=== PATIENT | female | born 2000 | race Two or more races ===

== ENCOUNTER 2020-07-20 11:27 | Emergency (ER) | payer OTHER ==
[~2020-07-20] VITALS: Ht 152.4 cm; Wt 59.4 kg
[2020-07-20] MEDS ORDERED: PRENATABS FA T1 EACH PO (11:37)
== END 2020-07-20 17:20 | disposition home or self-care (01) ==
LOC: ER 11:27
DX: O43.891 Other placental disorders, first trimester (principal); O26.851 Spotting complicating pregnancy, first trimester; O36.80X1 Pregnancy with inconclusive fetal viability, fetus 1; Z3A.01 Less than 8 weeks gestation of pregnancy

== ENCOUNTER → 2020-10-24 | Outpatient (CLI) | payer OTHER ==
[~2020-10-24] MED LIST: PRENATABS FA T1 EACH PO
== END | disposition home or self-care (01) ==
LOC: PRENATAL 13:00
PROVIDERS: ATTEND Obstetrics & Gynecology Maternal & Fetal Medicine
DX: O35.0XX1 Maternal care for (suspected) central nervous system malformation in fetus, fetus 1 (principal); O35.3XX1 Maternal care for (suspected) damage to fetus from viral disease in mother, fetus 1; O98.512 Other viral diseases complicating pregnancy, second trimester; Z36.89 Encounter for other specified antenatal screening; Z3A.20 20 weeks gestation of pregnancy

== ENCOUNTER 2021-01-08 15:05 | Inpatient (IN) | payer OTHER ==
[~2021-01-08] VITALS: Ht 154.9 cm; Wt 77.1 kg
== END 2021-01-25 19:07 | disposition home or self-care (01) | DRG 832 ==
LOC: LDR 15:05 → OB/GYN 01-11 13:19
PROVIDERS: ADMIT Obstetrics & Gynecology; ATTEND Obstetrics & Gynecology
PROC: 4A1HXFZ Monitoring of Products of Conception, Cardiac Rhythm, External Approach (ICD-10-PCS; principal; 2021-01-08)
DX: O60.03 Preterm labor without delivery, third trimester (principal); O26.873 Cervical shortening, third trimester; A49.3 Mycoplasma infection, unspecified site; Z3A.32 32 weeks gestation of pregnancy

== ENCOUNTER 2021-02-13 19:51 | Outpatient (CLI) | payer OTHER | END 2021-02-14 15:30 | disposition home or self-care (01) | LOC: OBS/DEL 19:51 | PROVIDERS: ATTEND Obstetrics & Gynecology | DX: O47.1 False labor at or after 37 completed weeks of gestation (principal); Z3A.37 37 weeks gestation of pregnancy; Z20.822 Contact with and (suspected) exposure to COVID-19 ==

== ENCOUNTER 2021-02-25 08:01 | Outpatient (CLI) | payer OTHER | END 2021-02-25 17:11 | disposition home or self-care (01) | LOC: OBS/DEL 08:01 | PROVIDERS: ATTEND Obstetrics & Gynecology | DX: O26.843 Uterine size-date discrepancy, third trimester (principal); Z3A.39 39 weeks gestation of pregnancy ==

== ENCOUNTER 2021-02-28 12:01 | Inpatient (IN) | payer OTHER ==
[~2021-02-28] VITALS: Ht 154.9 cm; Wt 82.6 kg
== END 2021-03-03 14:14 | disposition home or self-care (01) | DRG 807 ==
LOC: LDR 12:01 → OB/GYN 03-01 18:21
PROVIDERS: ADMIT Obstetrics & Gynecology; ATTEND Obstetrics & Gynecology
PROC: 10E0XZZ Delivery of Products of Conception, External Approach (ICD-10-PCS; principal; 2021-03-01)
PROC: 0HQ9XZZ Repair Perineum Skin, External Approach (ICD-10-PCS; 2021-03-01)
PROC: 4A1HXFZ Monitoring of Products of Conception, Cardiac Rhythm, External Approach (ICD-10-PCS; 2021-03-01)
PROC: 10907ZC Drainage of Amniotic Fluid, Therapeutic from Products of Conception, Via Natural or Artificial Opening (ICD-10-PCS; 2021-03-01)
PROC: 3E033VJ Introduction of Other Hormone into Peripheral Vein, Percutaneous Approach (ICD-10-PCS; 2021-03-01)
DX: O98.12 Syphilis complicating childbirth (principal); Z37.0 Single live birth; O70.0 First degree perineal laceration during delivery; Z3A.39 39 weeks gestation of pregnancy; A53.9 Syphilis, unspecified

== ENCOUNTER → 2024-03-07 | Emergency (ER) | payer OTHER ==
[~2024-03-07] VITALS: Ht 154.9 cm; Wt 76.7 kg
[~2024-03-07] MED LIST changes: +FAMOTIDINE/PF 20 MG in 0.9 % SODIUM CHLORIDE 8 ML IV PUSH STA; +MEPERIDINE HCL/PF 25 MG/ML VIAL IM ONE; +ONDANSETRON HCL 2 MG/ML VIAL IV ONE; +RINGERS SOLUTION,LACTATED 1,000 ML IV SCH
== END | disposition left against medical advice (07) ==
LOC: ER 17:51
DX: O26.891 Other specified pregnancy related conditions, first trimester (principal); K80.50 Calculus of bile duct without cholangitis or cholecystitis without obstruction; Z3A.01 Less than 8 weeks gestation of pregnancy

== ENCOUNTER 2024-04-27 12:46 | Emergency (ER) | payer OTHER ==
[~2024-04-27] VITALS: Ht 154.9 cm; Wt 79.4 kg
[~2024-04-27 12:46] MED LIST changes: -FAMOTIDINE/PF 20 MG in 0.9 % SODIUM CHLORIDE 8 ML IV PUSH STA; -MEPERIDINE HCL/PF 25 MG/ML VIAL IM ONE; -ONDANSETRON HCL 2 MG/ML VIAL IV ONE; -RINGERS SOLUTION,LACTATED 1,000 ML IV SCH
[2024-04-27 13:20] VITALS: BP 103/70; O2SAT 98
[2024-04-27 14:42] LABS: PH,URINE 6.5 (5.0-8.0); URINE APPEARANCE Clear; URINE BILIRRUBIN Negative (NEGATIVE); URINE BLOOD Negative; URINE COLOR Yellow; URINE GLUCOSE Negative (NEGATIVE); URINE KETONE Negative (NEGATIVE); URINE LEUKOCYTE Large; URINE NITRATE Negative; URINE PROTEIN Negative (NEGATIVE); URINE UROBILINOGEN 0.2 E.U./dl
[2024-04-27 14:43] LABS: HEMOGLOBIN 13.1 g/dL (12.0-15.00); MEAN CELL VOLUME 90.3 fL (80.00-100.00); MEAN CORPUSCULAR HEMOGLOBIN 30.3 pg (27.00-32.0); MEAN CORPUSCULAR HGB CONC 33.6 g/dl (32.0-36.0); PLATELET COUNT 193 K/uL (150-450); RED BLOOD COUNT 4.32 M/uL (4.00-6.00); RED CELL DISTRIBUTION WIDTH 13.5 % (11.5-14.5)
[2024-04-27 14:47] LABS: URINE EPITHELIAL CELLS 41.7 uL (0.0-38.8); URINE WBC 124.4 uL (0.0-23.2)
[2024-04-27 14:53] LABS: URINE CAST 1.06 uL (0.0-1.40); URINE RBC 0.6 uL (0.0-20.8)
[2024-04-27 15:16] LABS: CALCIUM 9.5 mg/dL (8.5-10.1); CREATININE SERUM 0.66 mg/dL (0.55-1.02); GFR 109.12; POTASSIUM 4.08 mEq/L (3.5-5.1)
== END 2024-04-27 15:46 | disposition home or self-care (01) ==
LOC: ER 12:48
PROVIDERS: General Practice
DX: O26.891 Other specified pregnancy related conditions, first trimester (principal); S39.81XA Other specified injuries of abdomen, initial encounter; W50.0XXA Accidental hit or strike by another person, initial encounter; Y93.89 Activity, other specified; Y92.89 Other specified places as the place of occurrence of the external cause; Z3A.15 15 weeks gestation of pregnancy

== ENCOUNTER 2024-05-05 08:30 | Outpatient (CLI) | payer OTHER | END 2024-05-05 08:31 | disposition home or self-care (01) | LOC: PRENATAL 08:30 | PROVIDERS: ATTEND Obstetrics & Gynecology Maternal & Fetal Medicine | DX: Z76.1 Encounter for health supervision and care of foundling (principal) ==

== ENCOUNTER 2024-06-24 09:15 | Outpatient (CLI) | payer OTHER | END 2024-06-24 09:16 | disposition home or self-care (01) | LOC: PRENATAL 09:15 | PROVIDERS: ATTEND Obstetrics & Gynecology Maternal & Fetal Medicine | DX: O44.00 Complete placenta previa NOS or without hemorrhage, unspecified trimester (principal); O28.3 Abnormal ultrasonic finding on antenatal screening of mother; Z3A.20 20 weeks gestation of pregnancy ==

== ENCOUNTER → 2024-07-15 | Emergency (ER) | payer OTHER ==
[~2024-07-15] VITALS: Ht 154.9 cm; Wt 83.5 kg
== END | disposition left against medical advice (07) ==
LOC: ER 08:31
DX: R53.81 Other malaise (principal)

== ENCOUNTER 2024-08-18 12:50 | Outpatient (CLI) | payer OTHER | END 2024-08-18 12:51 | disposition home or self-care (01) | LOC: PRENATAL 12:50 | PROVIDERS: ATTEND Obstetrics & Gynecology Maternal & Fetal Medicine | DX: O26.849 Uterine size-date discrepancy, unspecified trimester (principal); O28.3 Abnormal ultrasonic finding on antenatal screening of mother; Z3A.28 28 weeks gestation of pregnancy ==

== ENCOUNTER → 2024-09-30 10:31 | Outpatient (CLI) | payer OTHER | END | disposition home or self-care (01) | LOC: PRENATAL 10:31 | PROVIDERS: ATTEND Obstetrics & Gynecology Maternal & Fetal Medicine | DX: O26.849 Uterine size-date discrepancy, unspecified trimester (principal); O36.8199 Decreased fetal movements, unspecified trimester, other fetus; O28.3 Abnormal ultrasonic finding on antenatal screening of mother; Z3A.33 33 weeks gestation of pregnancy ==

== ENCOUNTER 2024-10-12 14:43 | Outpatient (CLI) | payer OTHER ==
[2024-10-12 11:35] VITALS: BP 109/66
[2024-10-12 13:53] VITALS: BP 109/66
[2024-10-12] MEDS ORDERED: PRENATAL TABLE1 EAC4 (14:47)
[2024-10-12] MEDS ORDERED: TERBUTALINE SULFATE 1 MG/ML AMPUL SUBCUTANEO SCH (15:00)
[2024-10-12] MEDS ORDERED: RINGERS SOLUTION,LACTATED 1,000 ML IV SCH (15:00)
[2024-10-12 15:44] LABS: BASO % 0.2 % (0.1-1.2); EOS # 0.13 (0.04-0.54); EOS % 1.6 % (0.7-7.0); HEMATOCRIT 34.3 % (34.1-44.9); HEMOGLOBIN 11.6 g/dL (11.2-15.7); LYMPH # 1.69 (1.18-3.74); LYMPH % 20.3 % (19.3-53.1); MEAN CORPUSCULAR HEMOGLOBIN 29.1 pg (25.6-32.2); MONO # 0.69 (0.24-0.82); MONO % 8.3 % (4.7-12.5); NEUT # 5.76 (1.56-6.13); PLATELET COUNT 208 K/uL (163-369); RED BLOOD COUNT 3.99 M/uL (3.93-5.22); RED CELL DISTRIBUTION WIDTH 13.7 % (11.6-14.4)
[2024-10-12 15:46] VITALS: BP 115/77
[2024-10-12 15:48] LABS: URINE APPEARANCE Clear; URINE BILIRRUBIN Negative (NEGATIVE); URINE BLOOD Negative; URINE COLOR Yellow; URINE GLUCOSE Negative (NEGATIVE); URINE KETONE 15 (NEGATIVE); URINE LEUKOCYTE Negative; URINE NITRATE Negative; URINE PROTEIN Negative (NEGATIVE); URINE UROBILINOGEN 0.2 E.U./dl
[2024-10-12 15:49] LABS: URINE BACTERIA 36.7 uL (0.0-1933); URINE WBC 6.6 uL (0.0-23.2)
[2024-10-12 16:02] LABS: TYPE CELLS SQUAMOUS; URINE MUCUS SCANT
[2024-10-12 19:25] VITALS: BP 112/77
[2024-10-12 23:12] VITALS: BP 107/69; O2SAT 98
[2024-10-13 04:04] VITALS: BP 93/55
[2024-10-13 06:08] VITALS: BP 101/65; O2SAT 99
[2024-10-13 10:55] VITALS: BP 111/74
[2024-10-13 15:17] VITALS: BP 115/69
== END 2024-10-13 17:08 | disposition home or self-care (01) ==
LOC: OBS/DEL 14:43
PROVIDERS: ATTEND Obstetrics & Gynecology
DX: O26.893 Other specified pregnancy related conditions, third trimester (principal); Z3A.35 35 weeks gestation of pregnancy

== ENCOUNTER 2024-11-03 00:12 | Inpatient (IN) | payer OTHER ==
[2024-11-02 23:36] VITALS: BP 125/75
[2024-11-03] VITALS (14 sets, daily range): BP systolic 106–145; BP diastolic 61–95
[~2024-11-03] VITALS: Ht 154.9 cm; Wt 88.5 kg
[~2024-11-03 00:12] MED LIST changes: +PRENATAL TABLE1 EAC4
[2024-11-03] MEDS ORDERED: RINGERS SOLUTION,LACTATED 1,000 ML IV SCH (00:15)
[2024-11-03] MEDS ORDERED: AMPICILLIN SOD500 MG PO (00:26)
[2024-11-03] MEDS ORDERED: AMPICILLIN SODIUM 2,000 MG VIAL IV ONE (00:30)
[2024-11-03 00:54] LABS: URINE APPEARANCE Turbid; URINE BILIRRUBIN Negative (NEGATIVE); URINE BLOOD Large; URINE COLOR Yellow; URINE GLUCOSE Negative (NEGATIVE); URINE KETONE Negative (NEGATIVE); URINE LEUKOCYTE Small; URINE NITRATE Negative; URINE UROBILINOGEN 0.2 E.U./dl
[2024-11-03 00:55] LABS: BASO % 0.2 % (0.1-1.2); EOS # 0.14 (0.04-0.54); EOS % 1.6 % (0.7-7.0); HEMATOCRIT 34.6 % (34.1-44.9); LYMPH # 1.95 (1.18-3.74); LYMPH % 22.7 % (19.3-53.1); MEAN CORPUSCULAR HEMOGLOBIN 29.6 pg (25.6-32.2); MONO # 0.71 (0.24-0.82); MONO % 8.3 % (4.7-12.5); NEUT # 5.72 (1.56-6.13); NEUT % 66.5 % (34.0-71.1); PLATELET COUNT 197 K/uL (163-369); RED BLOOD COUNT 4.02 M/uL (3.93-5.22); RED CELL DISTRIBUTION WIDTH 14.4 % (11.6-14.4)
[2024-11-03 00:58] LABS: URINE BACTERIA 2551.9 uL (0.0-1933); URINE EPITHELIAL CELLS 126.6 uL (0.0-38.8); URINE RBC 4296.7 uL (0.0-20.8); URINE WBC 498.4 uL (0.0-23.2)
[2024-11-03 01:08] LABS: HEMOGLOBIN 11.9 g/dL (11.2-15.7)
[2024-11-03 01:25] LABS: INR < 0.93; PARTIAL THROMBOPLASTIN TIME 27.9 SECONDS (22.0-34.0)
[2024-11-03 01:27] LABS: ALBUMIN 2.8 gm/dL (3.4-5.0); BILIRUBIN TOTAL 0.29 mg/dL (0.3-1.2); CREATININE SERUM 0.82 mg/dL (0.55-1.02); GFR 84.27; GLOBULINA 4.3 G/DL (2.4-3.5); TOTAL PROTEIN 7.1 gm/dL (6.4-8.2)
[2024-11-03 01:33] LABS: URINE CRYSTALS MANY /HPF; URINE PROTEIN 300 (NEGATIVE)
[2024-11-03 01:34] LABS: URINE MUCUS MODERATE
[2024-11-03 01:38] LABS: URINE YEAST NONE SEEN /hpf
[2024-11-03] MEDS ORDERED: AMPICILLIN SODIUM 1,000 MG VIAL IV SCH (04:00)
[2024-11-03] MEDS ORDERED: OXYTOCIN 20 UNITS/500ML RL PIGGYBAG IV ONE (08:14)
[2024-11-03] MEDS ORDERED: OXYTOCIN 500 ML IV SCH (08:45)
[2024-11-03] MEDS ORDERED: MORPHINE SULFATE 4 MG/ML CARTRIDGE IV ONE (10:00)
[2024-11-03] MEDS ORDERED: MORPHINE SULFATE 4 MG/ML VIAL IV ONE (14:31)
[2024-11-03] MEDS ORDERED: CHLORHEXIDINE GLUCONATE 120 ML BOTTLE TOP ONE (15:07)
[2024-11-03] MEDS ORDERED: OXYTOCIN 10 UNITS/ML VIAL ONE (15:07)
[2024-11-03] MEDS ORDERED: OXYTOCIN 20 UNITS/1000ML RL PIGGYBAG IV ONE ×2 (15:07→18:36)
[2024-11-03] MEDS ORDERED: LIDOCAINE HCL 1% 10ML VIAL ONE (15:07)
[2024-11-03] MEDS ORDERED: ERYTHROMYCIN BASE OPHT 1GM EACH TUBE OP ONE ×2 (15:07→18:00)
[2024-11-03] MEDS ORDERED: CARBOPROST TROMETHAMINE 250 MCG/ML AMPUL IM ONE ×2 (17:02→18:00)
[2024-11-03] MEDS ORDERED: OXYTOCIN 1,000 ML IV SCH (17:15)
[2024-11-03] MEDS ORDERED: IBUprofen 400 MG TABLET PO PRN (17:15)
[2024-11-03] MEDS ORDERED: CHLORHEXIDINE GLUCONATE 120 ML BOTTLE TP SCH (17:15)
[2024-11-03] MEDS ORDERED: OXYTOCIN 10 UNITS/ML VIAL IM ONE (18:00)
[2024-11-04 01:05] VITALS: BP 113/76
[2024-11-04 06:33] LABS: BASO % 0.2 % (0.1-1.2); EOS # 0.08 (0.04-0.54); EOS % 0.4 % (0.7-7.0); HEMATOCRIT 28.5 % (34.1-44.9); HEMOGLOBIN 9.7 g/dL (11.2-15.7); LYMPH # 1.64 (1.18-3.74); LYMPH % 8.7 % (19.3-53.1); MEAN CORPUSCULAR HEMOGLOBIN 29.8 pg (25.6-32.2); MONO % 6.9 % (4.7-12.5); NEUT # 15.78 (1.56-6.13); NEUT % 83.3 % (34.0-71.1); PLATELET COUNT 180 K/uL (163-369); RED BLOOD COUNT 3.25 M/uL (3.93-5.22); RED CELL DISTRIBUTION WIDTH 14.4 % (11.6-14.4)
[2024-11-04 09:06] VITALS: BP 93/50
[2024-11-04 16:39] VITALS: BP 109/64
[2024-11-05] VITALS: BP 97/58
[2024-11-05 09:04] VITALS: BP 110/57
== END 2024-11-05 10:20 | disposition home or self-care (01) | DRG 807 ==
LOC: LDR 00:12 → OB/GYN 18:28
PROVIDERS: ADMIT Obstetrics & Gynecology; ATTEND Obstetrics & Gynecology
PROC: 10E0XZZ Delivery of Products of Conception, External Approach (ICD-10-PCS; principal; 2024-11-03)
PROC: 4A1HXCZ Monitoring of Products of Conception, Cardiac Rate, External Approach (ICD-10-PCS; 2024-11-03)
DX: O99.824 Streptococcus B carrier state complicating childbirth (principal); Z37.0 Single live birth; Z3A.39 39 weeks gestation of pregnancy

== ENCOUNTER 2024-11-07 16:28 | Emergency (ER) | payer OTHER ==
[~2024-11-07] VITALS: Ht 154.9 cm; Wt 88.5 kg
[~2024-11-07 16:28] MED LIST changes: +AMPICILLIN SOD500 MG PO
[2024-11-07] MEDS ORDERED: ORPHENADRINE CITRATE 30 MG/ML AMPUL IM STA (19:06)
[2024-11-07] MEDS ORDERED: KETOROLAC TROMETHAMINE 60 MG VIAL IM STA (19:06)
[2024-11-07] MEDS ORDERED: ORPHENADRINE CITRATE 30 MG/ML AMPUL ONE (19:28)
[2024-11-07] MEDS ORDERED: KETOROLAC TROMETHAMINE 60 MG VIAL IM ONE (19:28)
== END 2024-11-07 19:49 | disposition home or self-care (01) ==
LOC: ER 16:28
DX: G24.3 Spasmodic torticollis (principal); J06.9 Acute upper respiratory infection, unspecified